=== PATIENT | female | born 2000 | race African-American/Black ===

== ENCOUNTER 2022-12-10 06:04 | Emergency (ER) | payer SELFPAY ==
[2022-12-10 06:09] VITALS: BP 124/83
== END 2022-12-10 06:30 | disposition left against medical advice (07) ==
LOC: EDUNIT# 06:04 → ER 06:04 → EDBD 06:04 → ER 06:30
DX: R40.4 Transient alteration of awareness (principal); R06.83 Snoring; Z53.21 Procedure and treatment not carried out due to patient leaving prior to being seen by health care provider

== ENCOUNTER 2024-11-10 09:32 | Emergency (ER) | payer SELFPAY ==
[~2024-11-10] VITALS: Ht 149.9 cm; Wt 58.8 kg
[2024-11-10 09:40] VITALS: BP 125/67; PULSE 92; RESP 16; TEMP 98.8; O2SAT 99
== END 2024-11-10 10:31 | disposition left against medical advice (07) ==
LOC: ER 09:32
DX: S01.112A Laceration without foreign body of left eyelid and periocular area, initial encounter (principal); Z53.21 Procedure and treatment not carried out due to patient leaving prior to being seen by health care provider; W19.XXXA Unspecified fall, initial encounter; Y93.89 Activity, other specified; Y92.89 Other specified places as the place of occurrence of the external cause; Y99.8 Other external cause status